=== PATIENT | female | born 1960 | race Caucasian/White ===

== ENCOUNTER 2017-01-19 12:55 | Emergency (ER) | payer MEDICAID ==
[2017-01-19 13:03] VITALS: BP 140/106; PULSE 95; RESP 18; TEMP 98.2; O2SAT 96
[2017-01-19] MEDS ORDERED: BENZONATATE 100 MG CAP PO ONE (15:06)
[2017-01-19] MEDS ORDERED: IPRATROPIUM/ALBUTEROL 3 ML DEYVIAL IH ONE (15:06)
--- NOTE | 2017-01-19 15:12 | EDPHY ---
H & P Time Seen by Provider: 01/19/17 15:00 HPI/ROS: HPI Cough. 56-year-old female by private vehicle with her . This patient reports she has had a dry, nonproductive cough since Wednesday evening. She reports she has felt feverish intermittently. She reports that this broke on Wednesday and she has not had a fever since this time. No chest pain. No shortness of breath. She is a smoker. ROS: Constitutional: As above, no chills. No weakness. Eyes: No discharge. No changes in vision. ENT: No sore throat. No nasal congestion or rhinorrhea. Respiratory: As above. No shortness of breath. Cardiac: No chest pain, no palpitations. Gastrointestinal: No abdominal pain, no vomiting, no diarrhea. Genitourinary: No hematuria. No dysuria or increased frequency with urination. Musculoskeletal: No back pain. No neck pain. No myalgias or arthralgias. Skin: No rashes. Neurological: No headache. No focal weakness or altered sensation. Past medical history: Hypertension, psychiatric. Social history: Smokes both marijuana and cigarettes daily. Denies alcohol. Here with her . Physical Exam: General Appearance: Alert, no distress. This patient is responding to questions appropriately and in full sentences. This patient appears well- hydrated and well-nourished. Eyes: Pupils equal and round no pallor or injection. No lid edema, erythema or injection. ENT, Mouth: Mucous membranes are dry. The pharyngeal tissues are unremarkable. Mild pharyngeal erythema, No edema or swelling. No asymmetry suggestive of abscess. No exudates. Respiratory: There are no retractions, lung sounds are somewhat diminished bilaterally. No wheezing. No rhonchi no crackles. No tachypnea. Cardiovascular: Regular rate and rhythm. No murmur. Neurological: Motor sensory function is grossly intact. Cranial nerves are normal. Gait is normal. Skin: Warm and dry, no rashes. Musculoskeletal: Neck is supple and nontender. No cervical, submental, submandibular lymphadenopathy. Extremities are symmetrical. All joints range without pain or impingement. Psychiatric: No agitation. No depression. Database: EKG: Imaging: Chest x-ray PA and lateral; the cardiac mediastinal silhouette is unremarkable. No evidence of infiltrate or pneumothorax. No acute cardiopulmonary disease process noted. Interpreted by me. Procedures: Emergency department course: Vital signs reviewed. She is hypertensive. Vital signs otherwise unremarkable. She is afebrile. We will do a trial albuterol/Atrovent nebulizer treatment on her. She received 200 mg of Tessalon Perle. Chest x-ray is pending. 3:10 p.m., the patient is now refusing a chest x-ray or any further treatment in the emergency department and is requesting discharge. The patient competently engages in shared decision making. They demonstrate capacitance to make decisions. In my professional opinion they understand the risks of declining treatment and evaluation as outlined above. Follow-up and return to emergency department precautions reviewed. All of their questions were answered. The patient was discharged home in good condition with her . Differential Diagnosis: The differential diagnosis on this patient includes but is not limited to bronchitis, COPD. Pneumonia, serious bacterial infection unlikely. This represents a partial list of diagnoses considered. These considerations are based on history, physical exam, past history, reassessment and diagnostic testing. Smoking Status: Current every day smoker Constitutional: Initial Vital Signs Temperature (C) 36.8 C 01/19/17 13:00 Heart Rate 95 01/19/17 13:00 Respiratory Rate 18 01/19/17 13:00 Blood Pressure 140/106 H 01/19/17 13:00 O2 Sat (%) 96 01/19/17 13:00 O2 Delivery Mode Room Air Allergies/Adverse Reactions: No Known Allergies Allergy (Unverified 01/19/17 12:59) Home Medications: Medication Instructions Recorded Abilify 01/19/17 Lisinopril 01/19/17 Zoloft 100mg (*) 01/19/17 Departure - Departure Disposition: Against Medical Advice Clinical Impression: Acute bronchitis Condition: Good Instructions: Acute Bronchitis (ED) Additional Instructions: Read and follow provided instructions. Follow-up with your primary care physician in 1-2 days for re-evaluation. Take your medication as prescribed. Return to the emergency department for worsening symptoms or other serious concerns. Referrals: Agnes Leblanc DO [Primary Care Provider] - As per Instructions
== END 2017-01-19 15:20 | disposition left against medical advice (07) ==
DX: J20.9 Acute bronchitis, unspecified (principal); I10 Essential (primary) hypertension; F17.210 Nicotine dependence, cigarettes, uncomplicated

== ENCOUNTER 2017-08-30 16:03 | Emergency (ER) | payer MEDICAID, OTHER ==
--- NOTE | 2017-08-30 17:48 | EDPHY ---
HPI/HX/ROS/PE/MDM Narrative: CHIEF COMPLAINT: Perirectal pain HISTORY OF PRESENT ILLNESS: The patient is a 56 y/o female with a history of thrombosed hemorrhoids and prior rectal abscess who complains of perirectal pain onset last week. She was evaluated at [facility] last week, 4 or 5 days ago, and had a left perirectal abscess lanced at that time. She has been doing her best to keep the site clean, but has had increasing pain again at the same site over the last couple days. She reports purulent and bloody drainage onto a pad since that procedure. She drank a beer to treat her pain today and has had one episode of diarrhea. No history of diabetes. No fever, chills, chest pain, shortness of breath, palpitations, vomiting, urinary complaints, headache, lightheadedness. REVIEW OF SYSTEMS: Aside from elements discussed in the HPI, a comprehensive 10-point review of systems was reviewed and is negative. PAST MEDICAL HISTORY: Thrombosed hemorrhoids, rectal abscess surgery by Dr. Caldera. SOCIAL HISTORY: "I have a beer a day," "5 cigarettes a week except Wednesday and I do smoke marijuana," friend at bedside VITAL SIGNS: Reviewed by me GENERAL: Well-developed, thin, resting comfortably in no respiratory distress. HEENT: Benign exam. LUNGS: Clear to auscultation bilaterally, no wheezes, rhonchi or rales. CARDIAC: Regular rate and rhythm, no rubs, murmurs or gallops. ABDOMEN: Soft, nontender, nondistended, bowel sounds normal. RECTAL: Left perirectal abscess 2cm in diameter with no active drainage from prior incision site, no tenderness on rectal examination. No pointing fluctuance on rectal examination. BACK: No CVA tenderness. EXTREMITIES: No trauma. No edema. Range of motion is normal throughout. NEURO: Alert and oriented, grossly nonfocal. SKIN: Warm and dry, no rash. PSYCHIATRIC: Normal mentation, no agitation. Portions of this note were transcribed by a medical voucher clerk. I personally performed a history, physical exam, medical decision making, and confirmed accuracy of information the transcribed note. ED Course: 50mcg IN Fentanyl administered for pain. Patient's abscess is located 2 cm from the anus. Area was locally injected with bupivacaine without epinephrine. Procedure: Abscess drainage. The patient's abscess was located on the perirectal buttocks. Risks, benefits, alternatives discussed with the patient and consent obtained. The area was incised with a #11 blade and no drainage was expressed. Area was probed to with small amount of bleeding but no purulence. The wound was packed with a small amount of quarter inch packing. The patient tolerated the procedure well. The procedure was performed by myself. Area of concern is a very well circumscribed, palpable, firm, 2 cm x 2 cm area of induration in the perirectal region. No purulence was obtained with I and D. This area may represent a the postprocedure hematoma. Patient was instructed regarding Sitz baths, was put on antibiotics of Keflex, will follow up with Dr. Castano. MDM: Differential diagnoses for the patient's symptom complex was considered including but not limited to perirectal abscess, perianal abscess, hematoma, cellulitis, indurated area, thrombosed hemorrhoid. - Data Points Medications Given: Discontinued Medications Cephalexin (Keflex 500 Mg Prepack#4) 1 btl TAKEHOME EDNOW ONE PRN Reason: Protocol Stop: 08/30/17 18:47 Last Admin: 08/30/17 18:59 Dose: 1 btl Cephalexin HCl (Keflex) 500 mg PO EDNOW ONE PRN Reason: Protocol Stop: 08/30/17 18:47 Last Admin: 08/30/17 18:58 Dose: 500 mg Fentanyl (Sublimaze) 50 mcg IVP EDNOW ONE Stop: 08/30/17 17:56 Last Admin: 08/30/17 18:21 Dose: 50 mcg General Time Seen by Provider: 08/30/17 17:44 Initial Vital Signs: Initial Vital Signs Temperature (C) 36.7 C 08/30/17 16:14 Heart Rate 85 08/30/17 16:14 Respiratory Rate 16 08/30/17 16:14 Blood Pressure 93/69 L 08/30/17 16:14 O2 Sat (%) 94 08/30/17 16:14 O2 Delivery Mode Room Air Allergies/Adverse Reactions: No Known Allergies Allergy (Verified 08/30/17 16:12) Home Medications: Medication Instructions Recorded Abilify 01/19/17 Lisinopril 01/19/17 Zoloft 100mg (*) 01/19/17 Cephalexin [Keflex] 500 mg PO TID #18 cap 08/30/17 Mirtazapine 08/30/17 Departure - Departure Disposition: Home, Routine, Self-Care Clinical Impression: Perirectal abscess Perirectal hematoma Qualifiers: Encounter type: initial encounter Qualified Code(s): S36.62XA - Contusion of rectum, initial encounter Condition: Good Instructions: Cephalexin (By mouth), Abscess Incision and Drainage (DC) Additional Instructions: Please keep the area clean and dry. You may remove the packing yourself on Wednesday. Sitz baths 2 to 3 times a day if possible once the packing is removed. Please take antibiotics as directed. Follow up with Dr. Caldera as soon as possible. Please call his office for an appointment. Be sure he knows this is an emergency department follow-up visit. Follow up with her primary care physician at [facility] on as previously scheduled. Referrals: NONE *PRIMARY CARE P,. [Primary Care Provider] - As per Instructions Frank Caldera MD [Medical Doctor] - As per Instructions [facility],. [Clinic] - As per Instructions Prescriptions: Cephalexin [Keflex] 500 mg PO TID #18 cap Report Scribed for: Estela Flores Report Scribed by: Lula Cook Date of Report: 08/30/17 Time of Report: 18:00
[2017-08-30] MEDS ORDERED: fentaNYL 100 MCG/2 ML INJ IVP ONE (17:55)
[2017-08-30] MEDS ORDERED: CEPHALEXIN 500MG PREPACK#4 BTL TAKEHOME ONE (18:46)
[2017-08-30] MEDS ORDERED: CEPHALEXIN 500 MG CAP PO ONE (18:46)
[2017-08-30 19:11] VITALS: BP 122/69
== END 2017-08-30 19:07 | disposition home or self-care (01) ==
PROC: 0D9P0ZZ Drainage of Rectum, Open Approach (ICD-10-PCS; principal; 2017-08-30)
DX: K61.1 Rectal abscess (principal); M79.81 Nontraumatic hematoma of soft tissue; F17.210 Nicotine dependence, cigarettes, uncomplicated
CPT/HCPCS: 96374; J3010